=== PATIENT | female | born 1995 | race Two or more races ===

== ENCOUNTER 2016-09-17 14:42 | Emergency (ER) | payer SELFPAY ==
[~2016-09-17] VITALS: Ht 165.1 cm; Wt 63.5 kg
[2016-09-17] MEDS ORDERED: METOCLOPRAMIDE HCL 10 MG/2 ML VIAL. IV ONE (15:30)
[2016-09-17] MEDS ORDERED: IV NORMAL SALINE 1000ML BAG 1,000 ML IV ONE (15:30)
[2016-09-17] MEDS ORDERED: PROCHLORPERAZINE 10 MG/2 ML VIAL. IV ONE (15:30)
[2016-09-17 15:53] LABS: BASO % 0 % (0-3); EOS % 4 % (0-3); HEMATOCRIT 44.6 % (36.0-47.0); HEMOGLOBIN 15.1 g/dL (12.0-15.5); LYMPH # 1.6 x10^3/uL (1.0-4.8); LYMPH % 15 % (24-48); MEAN CORPUSCULAR HEMOGLOBIN 29 pg (25-35); MEAN CORPUSCULAR HGB CONC 34 g/dL (31-37); MEAN CORPUSCULAR VOLUME 87 fL (79-100); MONO % 9 % (0-9); NEUT % 72 % (31-73); PLATELET COUNT 259 x10^3/uL (140-400); RED BLOOD COUNT 5.15 x10^6/uL (3.50-5.40); RED CELL DISTRIBUTION WIDTH 13.2 % (11.5-14.5); WHITE BLOOD COUNT 10.9 x10^3/uL (4.0-11.0)
[2016-09-17 16:03] LABS: CALCIUM 8.9 mg/dL (8.5-10.1); CREATININE 0.8 mg/dL (0.6-1.0); GFR 88.9; POTASSIUM 3.9 mmol/L (3.5-5.1)
[2016-09-17 16:05] LABS: NEG OBC SER NEG; POS OBC SER POS
[2016-09-17 16:28] LABS: ALBUMIN 3.9 g/dL (3.4-5.0); TOTAL BILIRUBIN 0.4 mg/dL (0.2-1.0); TOTAL PROTEIN 7.8 g/dL (6.4-8.2)
[2016-09-17] MEDS ORDERED: KETOROLAC TROMETHAMINE 30 MG/ML INJ. IV ONE (17:00)
--- NOTE | 2016-09-17 17:04 | RAD ---
CT of the head without contrast, 09/17/2016: History: Headache The ventricles are within normal limits in size. There is no shift of the midline structures. There is no evidence of acute intracranial hemorrhage or mass effect. There is mild mucosal thickening in both ethmoid and maxillary sinuses. There is soft tissue thickening in the right nasal cavity. IMPRESSION: No acute intracranial abnormality is detected. PQRS Compliance Statement: One or more of the following individualized dose reduction techniques were utilized for this examination: 1. Automated exposure control 2. Adjustment of the mA and/or kV according to patient size 3. Use of iterative reconstruction technique
[2016-09-17 17:40] VITALS: BP 106/66
--- NOTE | 2016-09-17 17:41 | ED.ADGEN ---
Past Medical History Past Medical History: No Pertinent History Past Surgical History: No Surgical History Alcohol Use: None Drug Use: None Adult General Chief Complaint Chief Complaint: HEADACHE HPI HPI Patient is a 21 year old female presents with intermittent headache, nausea and facial pain/tenderness for one week. Facial pain located over left maxillary sinuses. No reported fever, rash, neck stiffness or tenderness. No other acute symptoms or complaints. No medications or therapy sticking prior to ED arrival.Patient approximately one month . She is not currently nursing. Review of Systems Review of Systems ROS as per HPI Current Medications Current Medications Current Medications Medications (Trade) Dose Ordered Sig/Christian Start Time Stop Time Status Last Admin Dose Admin Ketorolac Tromethamine (Toradol) 30 mg 1X ONCE 09/17/16 17:00 09/17/16 17:01 DC 09/17/16 17:02 30 MG Metoclopramide HCl (Reglan) 10 mg 1X ONCE 09/17/16 15:30 09/17/16 16:03 DC 09/17/16 16:18 10 MG Prochlorperazine Edisylate (Compazine) 10 mg 1X ONCE 09/17/16 15:30 09/17/16 16:03 DC 09/17/16 16:17 10 MG Sodium Chloride 1,000 ml @ 1,000 mls/hr 1X ONCE 09/17/16 15:30 09/17/16 16:29 DC 09/17/16 16:18 1,000 MLS/HR Allergies Allergies Allergies Coded Allergies Type Severity Reaction Last Updated Verified No Known Drug Allergies 09/17/16 No Physical Exam Physical Exam Constitutional: Well developed, well nourished, no acute distress, non-toxic appearance. HENT: Normocephalic, atraumatic, maxillary tenderness to palpation, Bilateral external ears normal, oropharynx moist, no oral exudates, nose normal, erythema turbinate swelling. Eyes: PERRLA, EOMI, conjunctiva normal, no discharge. Neck: Normal range of motion, no meningismus Cardiovascular:Heart rate regular rhythm, no murmur . Lungs & Thorax: Bilateral breath sounds clear to auscultation Abdomen: Bowel sounds normal, soft, no tenderness. Skin: Warm, dry, no erythema, no rash. Back: No tenderness, no CVA tenderness. Extremities: No tenderness, no cyanosis, no clubbing, ROM intact, no edema. Neurologic: Alert and oriented X 3, normal motor function, normal sensory function, no focal deficits noted. Psychologic: Affect normal, judgement normal, mood normal. Current Patient Data Vital Signs Vital Signs Date Time Temp Pulse Resp B/P (MAP) Pulse Ox O2 Delivery O2 Flow Rate FiO2 09/17/16 14:50 98.9 108 18 117/65 (82) 97 Room Air 98.9 Lab Values Laboratory Tests Test 09/17/16 13:58 09/17/16 15:40 POC Urine HCG, Qualitative Hcg negative (Negative) White Blood Count 10.9 x10^3/uL (4.0-11.0) Red Blood Count 5.15 x10^6/uL (3.50-5.40) Hemoglobin 15.1 g/dL (12.0-15.5) Hematocrit 44.6 % (36.0-47.0) Mean Corpuscular Volume 87 fL (79-100) Mean Corpuscular Hemoglobin 29 pg (25-35) Mean Corpuscular Hemoglobin Concent 34 g/dL (31-37) Red Cell Distribution Width 13.2 % (11.5-14.5) Platelet Count 259 x10^3/uL (140-400) Neutrophils (%) (Auto) 72 % (31-73) Lymphocytes (%) (Auto) 15 % (24-48) L Monocytes (%) (Auto) 9 % (0-9) Eosinophils (%) (Auto) 4 % (0-3) H Basophils (%) (Auto) 0 % (0-3) Neutrophils # (Auto) 7.8 x10^3uL (1.8-7.7) H Lymphocytes # (Auto) 1.6 x10^3/uL (1.0-4.8) Monocytes # (Auto) 1.0 x10^3/uL (0.0-1.1) Eosinophils # (Auto) 0.4 x10^3/uL (0.0-0.7) Basophils # (Auto) 0.0 x10^3/uL (0.0-0.2) Sodium Level 141 mmol/L (136-145) Potassium Level 3.9 mmol/L (3.5-5.1) Chloride Level 104 mmol/L (98-107) Carbon Dioxide Level 25 mmol/L (21-32) Anion Gap 12 (6-14) Blood Urea Nitrogen 10 mg/dL (7-20) Creatinine 0.8 mg/dL (0.6-1.0) Estimated GFR (Cockcroft-Gault) 88.9 BUN/Creatinine Ratio 13 (6-20) Glucose Level 113 mg/dL (70-99) H Calcium Level 8.9 mg/dL (8.5-10.1) Total Bilirubin 0.4 mg/dL (0.2-1.0) Aspartate Amino Transferase (AST) 11 U/L (15-37) L Alanine Aminotransferase (ALT) 26 U/L (14-59) Alkaline Phosphatase 70 U/L (46-116) Total Protein 7.8 g/dL (6.4-8.2) Albumin 3.9 g/dL (3.4-5.0) Albumin/Globulin Ratio 1.0 (1.0-1.7) Serum Test, Qualitative Negative (NEG) Laboratory Tests 09/17/16 15:40 Laboratory Tests 09/17/16 15:40 EKG EKG [] Radiology/Procedures Radiology/Procedures [CT head: Maxillary and ethmoid disease per radiology report] Course & Med Decision Making Course & Med Decision Making Pertinent Labs and Imaging studies reviewed. (See chart for details) [IV fluids, antiemetics and pain medication with given clinical improvement. Lab work and CT imaging reviewed. Findings consistent with sinusitis and secondary headache. Patient does not appear acutely ill or toxic. No meningeal signs, or rash. PCP f/u.] Dragon Disclaimer Dragon Disclaimer This electronic medical record was generated, in whole or in part, using a voice recognition dictation system. MARSHA STARR DO Sep 17, 2016 17:41
== END 2016-09-17 18:11 | disposition home or self-care (01) ==
LOC: ER 14:42
DX: R51 Headache (principal); R11.0 Nausea
CPT/HCPCS: 36415; 70450; 80053; 81025; 84703; 85027; 96361; 96374; 96375; 99285; J0780; J1885; J2765; J7030

== ENCOUNTER 2021-02-09 04:51 | Emergency (ER) | payer SELFPAY | END 2021-02-09 06:00 | disposition left against medical advice (07) | LOC: ER 04:51 | DX: R10.9 Unspecified abdominal pain (principal); Z53.21 Procedure and treatment not carried out due to patient leaving prior to being seen by health care provider ==

== ENCOUNTER 2021-06-11 07:59 | Emergency (ER) | payer SELFPAY ==
[~2021-06-11] VITALS: Ht 162.6 cm; Wt 70.4 kg
[2021-06-11 08:17] VITALS: BP 124/71
--- NOTE | 2021-06-11 09:11 | RAD ---
XR CHEST 1V History: Reason: cough / Spl. Instructions: / History: Comparison: None. Findings: No consolidation or pleural effusion. Normal heart size. No pneumothorax. Impression: 1. No acute cardiopulmonary process. Electronically signed by: Denny Whipple DO (06/11/2021 9:09 AM) [id number]
[2021-06-11] MEDS ORDERED: AMOX875T PO (09:54)
--- NOTE | 2021-06-11 09:54 | PHYS DOC ---
Past Medical History Past Medical History: No Pertinent History Past Surgical History: Other Additional Past Surgical Histo: DENTAL Smoking Status: Never Smoker Alcohol Use: None Drug Use: None Adult General Chief Complaint Chief Complaint: FLU SYMPTOM HPI HPI Patient is a 26 year old female who was diagnosed with the flu about a week ago. She was on an antiviral agent but has developed a sore throat over the l ast few days. She has discomfort with swallowing both liquids and solids but is able to tolerate liquids at least. She is also had a nonproductive cough. No shortness of breath at this time. She does have some chest discomfort with coughing and taking a deep breath. No fever, nausea, vomiting or abdominal pain. Review of Systems Review of Systems Constitutional: Denies fever Eyes: Denies change in visual acuity or eye pain HENT: Reports sore throat Respiratory: Denies shortness of breath Cardiovascular: Denies chest pain GI: Denies abd pain : Denies dysuria Musculoskeletal: Denies back or extremity injury Integument: Denies rash or skin lesions Neurologic: Denies headache, focal weakness or sensory changes All other systems were reviewed and found to be within normal limits, except as documented in this note. Allergies Allergies Allergies Coded Allergies Type Severity Reaction Last Updated Verified No Known Drug Allergies 09/17/16 No Physical Exam Physical Exam Constitutional: Well developed, well nourished, no acute distress, non-toxic appearance. HENT: Normocephalic, atraumatic, bilateral external ears normal, mucosa moist, nose normal, erythema of posterior oropharynx present without exudate. Eyes: EOMI, conjunctiva normal, no discharge. Neck: Normal range of motion, supple, no stridor, no meningeal signs. Cardiovascular: Regular rate and rhythm Lungs & Thorax: Bilateral breath sounds clear to auscultation Abdomen: Soft, no tenderness or obvious masses Skin: Warm, dry, no erythema, no rash. Extremities: No tenderness, no cyanosis, no clubbing, ROM intact, no edema. Neurologic: Alert and oriented, normal motor function, normal sensory function, no focal deficits noted. Psychologic: Affect normal, judgement normal, mood normal. Current Patient Data Vital Signs Vital Signs Date Time Temp Pulse Resp B/P (MAP) Pulse Ox O2 Delivery O2 Flow Rate FiO2 06/11/21 08:17 98.0 94 18 124/71 (88) 98 Room Air 98.0 Lab Values Laboratory Tests Test 06/11/21 08:20 POC Urine HCG, Qualitative Hcg negative (Negative) EKG EKG [] Radiology/Procedures Radiology/Procedures [] Impressions: PATIENT: HUNTER AGUDELOCOUNT: [id number]#: [id number] : 1995 LOCATION: ER AGE: 26 SEX: F EXAM STATUS: REG ER ORD. PHYSICIAN: RONNIE ESCOBAR MD REASON: cough PROCEDURE: CHEST AP ONLY XR CHEST 1V History: Reason: cough / Spl. Instructions: / History: Comparison: None. Findings: No consolidation or pleural effusion. Normal heart size. No pneumothorax. Impression: 1. No acute cardiopulmonary process. Electronically signed by: Elizabeth Toth DO (06/11/2021 9:09 AM) [id number] DICTATED and SIGNED BY: ELIZABETH TOTH DO DATE: 06/11/21 [id number] Course & Med Decision Making Course & Med Decision Making Pertinent Labs and Imaging studies reviewed. (See chart for details) [] Dragon Disclaimer Dragon Disclaimer This electronic medical record was generated, in whole or in part, using a voice recognition dictation system. Departure Departure Impression: Primary Impression: Pharyngitis Additional Impression: Influenza Disposition: 01 HOME / SELF CARE / HOMELESS Condition: STABLE Referrals: NO PCP (PCP) Patient Instructions: Viral and Bacterial Pharyngitis Scripts Amoxicillin (AMOXICILLIN) 875 Mg Tablet 1 TAB PO BID, #14 TAB Prov: RONNIE ESCOBAR MD 06/11/21 Problem Qualifiers RONNIE ESCOBAR MD Jun 11, 2021 09:54
== END 2021-06-11 10:00 | disposition home or self-care (01) ==
LOC: ER 07:59
DX: J11.1 Influenza due to unidentified influenza virus with other respiratory manifestations (principal)
CPT/HCPCS: 71045; 81025; 99283